=== PATIENT | male | born 1995 | race Caucasian/White ===

== ENCOUNTER 2019-05-17 21:24 | Emergency (ER) | payer SELFPAY ==
[~2019-05-17] VITALS: Ht 165.1 cm; Wt 54.5 kg
[2019-05-17 21:27] VITALS: Ht 165.1 cm; Wt 54.5 kg
[2019-05-17] MEDS ORDERED: ALBUTEROL SULF8.5 GM INH (21:29)
[2019-05-17] MEDS ORDERED: MUPIROCIN22 GM TOPICAL (23:17)
[2019-05-17 23:25] VITALS: BP 125/73
== END 2019-05-17 23:25 | disposition home or self-care (01) ==
LOC: D.ER 21:24
DX: S40.212A Abrasion of left shoulder, initial encounter (principal); S80.212A Abrasion, left knee, initial encounter; V19.9XXA Pedal cyclist (driver) (passenger) injured in unspecified traffic accident, initial encounter; Y93.89 Activity, other specified; Y92.89 Other specified places as the place of occurrence of the external cause

== ENCOUNTER 2020-09-01 09:20 | Emergency (ER) | payer SELFPAY ==
[~2020-09-01] VITALS: Ht 165.1 cm; Wt 59.1 kg
[~2020-09-01 09:20] MED LIST: ALBUTEROL SULF8.5 GM INH; MUPIROCIN22 GM TOPICAL
[2020-09-01 10:16] VITALS: BP 127/78; Ht 165.1 cm; Wt 59.1 kg
== END 2020-09-01 12:50 | disposition left against medical advice (07) ==
LOC: D.ER 09:20
DX: R22.1 Localized swelling, mass and lump, neck (principal)